=== PATIENT | female | born 2000 | race Two or more races ===

== ENCOUNTER → 2025-05-11 | Day surgery (SDC) | payer OTHER ==
[~2025-05-11] VITALS: Ht 160 cm; Wt 72.6 kg
[~2025-05-11] MED LIST: CEFAZOLIN SODIUM 1,000 MG VIAL ONE; CHLORHEXIDINE GLUCONATE 120 ML BOTTLE TOP ONE; IBU800 MG PO; NEURONTIN300 MG PO; POVIDONE-IODINE 118 ML BOTT TOP ONE; PROZAC20 MG PO; RINGERS SOLUTION,LACTATED 1,000 ML IV STA; SUGAMMADEX SODIUM 200 MG/2 ML VIAL IV ONE
--- NOTE | 2025-05-11 12:58 | NUR ---
PACIENTE ALERTA Y ORIENTADA X 3. REFIERE 4 SEMANAS DE EMBARAZO Y PRESENTA SANGRADO VAGINAL Y DOLOR PELVICO DESDE EL VIERNES. NIEVES GINECOLOGO DR Iam MARTINEZ LE INDICO PASAR POR ER POR SOSPECHA DE EMBARAZO ECTOPICO.
[2025-05-11 14:19] LABS: BASO % 0.3 % (0.1-1.2); EOS # 0.05 (0.04-0.54); EOS % 0.6 % (0.7-7.0); LYMPH # 2.01 (1.18-3.74); LYMPH % 22.5 % (19.3-53.1); MONO # 0.45 (0.24-0.82); MONO % 5.0 % (4.7-12.5); NEUT # 6.38 (1.56-6.13); NEUT % 71.5 % (34.0-71.1); RED CELL DISTRIBUTION WIDTH 20.0 % (11.6-14.4)
--- NOTE | 2025-05-11 14:24 | NUR ---
SE ORIENTA A PTE SOBRE TX MEDICO LA MISMA REFIERE ENTENDER. SE COLOCA H/L EN BRAZO DERECHO, SE RECOLECTAN MUESTRAS DE LAB Y SE ADMISNISTRAN MEDICAMENTOS SEGUNO RDEN MEDICA BAJO MEDIDAS ASEPTICAS.
[2025-05-11 14:36] LABS: INR 1.24
[2025-05-11 14:40] LABS: ALT/SGPT 25.0 U/L (12-78); AST/SGOT 13.0 U/L (15-37); BILIRUBIN TOTAL 0.4 mg/dL (0.3-1.2); BUN CREA RATIO 12.0 (7.0-25.0); CREATININE SERUM 0.52 mg/dL (0.55-1.02); GFR 141.45; GLOBULINA 3.5 G/DL (2.4-3.5); GLUCOSE FASTING 83.0 mg/dL (65-100); OSMOLALITY SERUM 280.0 MOSM/KG (275-295)
[2025-05-11 15:17] LABS: URINE APPEARANCE Clear; URINE BILIRRUBIN Negative (NEGATIVE); URINE BLOOD Large; URINE COLOR Yellow; URINE GLUCOSE Negative (NEGATIVE); URINE KETONE Negative (NEGATIVE); URINE LEUKOCYTE Negative; URINE NITRATE Negative; URINE PROTEIN Negative (NEGATIVE); URINE UROBILINOGEN 0.2 E.U./dl
[2025-05-11 15:26] LABS: URINE BACTERIA 39.5 uL (0.0-1933); URINE EPITHELIAL CELLS 3.2 uL (0.0-38.8); URINE RBC 1667.8 uL (0.0-20.8); URINE WBC 10.7 uL (0.0-23.2)
[2025-05-11 15:27] LABS: URINE CAST 0.00 uL (0.0-1.40)
[2025-05-11 19:53] VITALS: BP 104/50; O2SAT 100
== END | disposition home or self-care (01) ==
LOC: EDSTATUS 12:43 → ER 12:43 → CIR.AMB 14:22 → O/R 14:27 → ER 14:27 → O/R 19:45
PROVIDERS: ATTEND General Practice
DX: O00.101 Right tubal pregnancy without intrauterine pregnancy (principal); N80.01 Superficial endometriosis of the uterus